=== PATIENT | male | born 1980 | race Caucasian/White ===

== ENCOUNTER → 2017-05-24 | Outpatient (CLI) | payer BC ==
[2016-08-13 21:50] VITALS: BP 110/82
[~2017-05-24] MED LIST: TYLENOL 500MG500 MG PO
== END ==
LOC: RAD 12:21
DX: M54.6 Pain in thoracic spine (principal)

== ENCOUNTER → 2017-05-28 | Outpatient (CLI) | payer BC ==
[2016-08-13 21:50] VITALS: BP 110/82
== END ==
LOC: RAD 13:00
DX: M54.9 Dorsalgia, unspecified (principal)

== ENCOUNTER 2017-05-31 08:58 | Outpatient (RCR) | payer BC ==
[2016-08-13 21:50] VITALS: BP 110/82
== END 2017-08-29 | disposition home or self-care (01) ==
LOC: PT
DX: M48.04 Spinal stenosis, thoracic region (principal)

== ENCOUNTER → 2017-10-08 | Outpatient (CLI) | payer BC ==
[2016-08-13 21:50] VITALS: BP 110/82
== END ==
LOC: LAB 16:01
DX: R51 Headache (principal)

== ENCOUNTER → 2017-10-15 | Outpatient (CLI) | payer BC ==
[2016-08-13 21:50] VITALS: BP 110/82
== END ==
LOC: LAB 11:29
DX: R10.13 Epigastric pain (principal); R19.7 Diarrhea, unspecified; M54.5 Low back pain

== ENCOUNTER → 2018-02-08 | Outpatient (CLI) | payer BC ==
[2016-08-13 21:50] VITALS: BP 110/82
== END ==
LOC: RAD 10:23
DX: S92.512A Displaced fracture of proximal phalanx of left lesser toe(s), initial encounter for closed fracture (principal)

== ENCOUNTER → 2019-02-25 | Outpatient (CLI) | payer SELFPAY ==
[2016-08-13 21:50] VITALS: BP 110/82
== END ==
LOC: RAD 11:27
DX: M47.817 Spondylosis without myelopathy or radiculopathy, lumbosacral region (principal); M48.07 Spinal stenosis, lumbosacral region; M51.37 Other intervertebral disc degeneration, lumbosacral region

== ENCOUNTER 2020-02-03 01:42 | Emergency (ER) | payer OTHER ==
[~2020-02-03 01:42] MED LIST changes: +PROZAC40 M1 PO; +XANAX 1MG1 MG PO
[2020-02-03 02:14] VITALS: BP 107/74
== END 2020-02-03 02:20 | disposition home or self-care (01) ==
LOC: ED 01:42
DX: G43.909 Migraine, unspecified, not intractable, without status migrainosus (principal); F41.9 Anxiety disorder, unspecified; F43.10 Post-traumatic stress disorder, unspecified
CPT/HCPCS: J1200; J2550